=== PATIENT | male | born 1965 | race Asian ===

== ENCOUNTER 2025-05-04 07:02 | Day surgery (SDC) | payer OTHER, SELFPAY ==
[2025-04-12 10:24] VITALS: BMI 30.3
[2025-04-12 11:04] LABS: INR 1.07; PT 14.2 Sec (11.4-14.6)
--- NOTE | 2025-04-12 11:16 | HPS.HSE ---
Family Physician
-
Family Physician: Minal Mosqueda
Chief Complaint
-
Paroxysmal atrial fibrillation.
History of Present Illness
The patient is a 59 year old male presenting today for paroxysmal atrial fibrillation. His primary language is Turkmen; however, his daughter Ashley is here today to provide further translation. The patient reports a history of shortness of
breath, palpitations, lightheadedness, and fatigue all likely associated with this diagnosis. He was initially diagnosed with his arrhythmia in 2022 in the setting of an acute illness and superior mesenteric vein thrombus diagnosis. He is on chronic
Eliquis per hematology due to his previous clot. He previously underwent 2 cardioversions; however, he has failed to maintain normal sinus rhythm. He is rate controlled with Diltiazem. He has been compliant with Eliquis for oral anticoagulation due
to a [id number] of 2. Given his significant symptoms, he would like to proceed with pulmonary vein isolation for more definitive arrhythmia management. He denies any current complaints today such as chest pain, shortness of breath at rest, nausea,
vomiting, diarrhea, dizziness, cough, sore throat, or fever.
Medical History
Past Medical History
Past Medical History: Reports Other
Additional Past Medical History:
1. Paroxysmal atrial fibrillation, status post cardioversion x2; pharmacological therapy with Diltiazem and oral anticoagulation with Eliquis.
2. Dyslipidemia.
3. Superior mesenteric vein thrombus, 2022, on chronic Eliquis per hematology.
4. Obstructive sleep apnea, noncompliant with device.
5. Non-insulin dependent diabetes.
6. GERD.
7. Hiatal hernia.
8. Colon polyps.
9. PAUL with mildly elevated transaminases.
10. Splenomegaly with chronic thrombocytopenia.
11. GI ulcer with bleed, 2018, secondary to excessive NSAID use.
12. Acute blood loss anemia secondary to the above, status post blood transfusion.
13. Gout.
14. Obesity, BMI 30.3.
15. History of tobacco abuse.
Past Surgical History: Reports Other
Additional Past Surgical History:
1. Cardioversion x2.
2. Multiple dental extractions.
3. EGD x2.
Social History
Tobacco: Former Smoker (He is a former 1 pack per day cigarette smoker who quit tobacco altogether in 2018. )
Alcohol: Other (Social use reported. )
Personal:
Living: Other (He lives with his and extended family in a 2 story townhouse. )
Family History
Family History: Not pertinent
Allergies / Home Medications
Allergy/Medication List:
Home medications:
1. Allopurinol 100 mg p.o. twice a day.
2. Eliquis 5 mg p.o. twice a day.
3. Atorvastatin 10 mg p.o. daily.
4. Diltiazem 240 mg p.o. daily.
5. Jardiance 10 mg p.o. daily.
6. Famotidine 10 mg p.o. daily.
7. Ferrous sulfate 325 mg p.o. every other day.
8. Glipizide 10 mg p.o. daily.
9. Tradjenta 5 mg p.o. daily.
10. Losartan 100 mg p.o. daily.
11. Metformin 1000 mg p.o. twice a day.
Allergies: No known allergies.
Review of Systems
-
A 12 point ROS was completed and negative except as noted: Yes
Physical Exam
Vital Signs
Blood pressure 136/83. Heart rate 81. Respirations 18. Pulse ox 98% on room air.
Height 5 feet, 6 inches. Weight 85.1 kg. BMI 30.3.
Physical Exam
General: Well Developed, Well Nourished and No Apparent Distress
HEENT: NormoCephalic, Moist mucous membranes, Atraumatic and PERRLA
Respiratory: Clear
Cardiac: Regular Rhythm
GI: Soft, Non Tender, Non Distended and Other (Obese. )
Musculoskeletal: No Edema and Normal Gait & Station
Skin: Warm and Dry
Neuro: AO x 3 and Nonfocal/grossly intact
Laboratory Results
-
DIAGNOSTIC STUDIES as of 04/12/2025: White blood cell count 5.2. Hemoglobin 14.1. Platelet count 54,000. PT 14.2. INR 1.07. Sodium 137. Potassium 4.2. BUN 10. Creatinine 0.8. Glucose 214. Calcium 9.2. Magnesium 1.9. AST 60. ALT 53. Albumin 4.8. Type
and screen B positive.
EKG 04/12/2025: Normal sinus rhythm. Left axis deviation.
Chest CT 04/12/2025: Conventional pulmonary venous anatomy. Right superior pulmonary vein has a 6.5 mm inferior ostial branch (right middle lobe pulmonary vein). The right inferior pulmonary vein has a 7 mm superior and a 4.4 mm inferior ostial
branch (superior segment right lower lobe pulmonary vein and medial basal subsegmental pulmonary vein, respectively). No left atrial appendage filling defect/thrombus identified. Small sliding hiatal hernia with suggestion of mild esophageal wall
thickening, raising possibility of esophagitis. Findings suspicious for mild splenomegaly.
Impression/Plan
-
IMPRESSION/PLAN:
1. Paroxysmal atrial fibrillation: The patient is in need of pulmonary vein isolation with Dr. Carlos Eduardo Borrero on 05/04/2025. The benefits and risks of the procedure have been explained to the patient. The patient understands these risks and wishes to
proceed. He will not be required to undergo a pre-procedural transesophageal echocardiogram as he has been compliant with his home oral anticoagulation. He is aware to continue his Eliquis uninterrupted prior to his procedure. He will hold his
Jardiance 72 hours prior to his procedure. He will take no medications the morning of his ablation.
2. Splenomegaly with chronic thrombocytopenia: The patient saw his routine care advocate, Dr. Edwin Liu, prior to his ablation. His office note has been scanned into [facility] and [facility]. Dr. Liu notes that his platelet count typically falls
between 60,000 to the low 100,000s. A repeat CBC on 04/19/2025 revealed a platelet count of 60,000. He has recommended the patient have 1 unit of single donor platelets transfused 30-60 minutes prior to his procedure. A unit was also recommended to
be on hold for the OR. This order was placed in [facility] under the advisement of blood bank on 04/27/2025. Celestina from surgical scheduling made aware as the patient will likely need to come in earlier than normal the day of his ablation. Blood bank
is requesting a call be made to them the morning of the procedure so that they will be aware of what time his surgery is scheduled for that day.
[2025-04-12 11:17] LABS: ALT (SGPT) 53 U/L (0-50); AST (SGOT) 60 U/L (17-59); Albumin 4.8 g/dl (3.5-5.0); Alkaline Phosphatase 123 U/L (38-126); Blood Urea Nitrogen 10 mg/dl (9-20); Calcium 9.2 mg/dl (8.4-10.2); Carbon Dioxide 20 mmol/L (22-30); Chloride 107 mmol/L (98-107); Estimated Creatinine Clearance 100 ml/min; Glucose 214 mg/dl (70-99); Magnesium 1.9 mg/dl (1.6-2.3); Potassium 4.2 mmol/L (3.5-5.1); Sodium 137 mmol/L (135-145); Total Protein 7.8 g/dl (6.3-8.2); eGFR > 60.00
[2025-04-12 11:28] LABS: Hematocrit 43.1 % (39.0-52.0); Hemoglobin 14.1 g/dL (13.0-18.0); Mean Corp Hgb Conc. 32.7 g/dL (33.0-37.0); Mean Corpuscular Volume 83.7 fL (80.0-94.0); Nucleated Red Blood Cells % 0 % (-); Red Cell Dist. Width 13.3 % (11.5-14.5)
[2025-04-12 12:00] LABS: Platelet Count 54 10^3/uL (130-400)
[2025-05-04] VITALS (11 sets, daily range): BP systolic 91–141; BP diastolic 65–84
[2025-05-04 07:42] LABS: Glucose - Point of Care 197 mg/dl (70-99)
[2025-05-04 07:42] LABS: Hematocrit 40.4 % (39.0-52.0); Hemoglobin 13.4 g/dL (13.0-18.0); Mean Corp Hgb Conc. 33.2 g/dL (33.0-37.0); Mean Corpuscular Volume 81.1 fL (80.0-94.0); Platelet Count 41 10^3/uL (130-400); Red Cell Dist. Width 14.1 % (11.5-14.5)
[2025-05-04] MEDS: TYLENOL 500 MG PO (07:53)
--- NOTE | 2025-05-04 08:10 | ITS.CL.ABL ---
Blowing Engineer - Ablation
Ablation
Procedure Report:
[place] Bus Driver: Dr Daniel Gilmore
Procedure Date: 05/04/2025
Patient History:
Patient is a pleasant 60-year-old male with a past medical history significant for diabetes, dyslipidemia, PAUL, MED, mesenteric venous thrombus, and symptomatic paroxysmal atrial fibrillation.
See H&P for complete details.
Indication:
Symptomatic paroxysmal atrial fibrillation
Arrhythmia Specific History:
Prior Medical Therapies for Rate and Rhythm Control:
[ ] Beta-eliana
X Calcium channel-eliana
[ ] Amiodarone
[ ] Dronederone
[ ] Sotalol
[ ] Flecainide
[ ] Dofetilide
[ ] Options limited by bradycardia
[ ] Options limited by comorbid renal disease
Prior Procedural Therapies for AF/AFL:
X Cardioversion
[ ] Pulmonary Vein Isolation
[ ] Posterior Wall Isolation
[ ] Additional lines (Specify)
[ ] Surgical Jolley-MAZE or PVI (Specify)
Procedure Performed:
X AF ablation procedure (29174) -- includes LA/CS pacing, trans-septal, 3D mapping, + ICE
[ ] +IV drug (29262)
[ ] +Other Arrhythmia (63003)
X +Other AF Line/ablation (00959) x2 -- floor line, roof line, posterior wall isolation
Risks and expected recovery has been explained in detail. Alternative options have been explored, and in a shared-decision making fashion we have decided that this was the most appropriate procedure.
Method
NPO status confirmed. Grounding pad applied. Defibrillator pads applied. Continuous surface ECG, pulse oximetry, and blood pressure were monitored. Procedure was performed under general anesthesia, with anesthesia services. Platelets (1 unit
platelets) were infused as ordered.
Both groins were clipped, prepped with Chloraprep, and draped in sterile fashion. Time out was called. Local anesthesia administered with bupivacaine. The right femoral vein was accessed for catheter placement, using ultrasound guidance (images
saved to record), micro-puncture needle/wire, and modified seldinger technique. 3 sheaths were placed. The following catheters were used:
[ ] Tacticath SE (D/F Curve) ablation catheter
X Viewflex 9Fr ICE catheter
X Inquiry decapolar 6Fr diagnostic catheter
[ ] CRD Hex 6Fr
X FlexCath Contour 10 Fr with PulseSelect PFA Catheter
X Advisor HD Grid Mapping Catheter, SE
[ ] AcusQualvu AcuNav 8 Fr ICE catheter
[ ]Other: [ ]
Intracardiac ultrasound (ICE) was carefully advanced into the right atrium to guide sheath placement over a J-wire, catheter placement, guide trans-septal puncture, identify potential complications, identify anatomic structures and ensure proper
contact between ablation catheter and tissue.
Heparin was given prior to trans-septal puncture. Heparin was given to achieve and maintain a target ACT of 300-400 seconds throughout the procedure.
Trans-septal access was performed under ICE guidance. The trans-septal puncture was performed with a SafeSept wire through a Brockenbrough needle assembly through the steerable sheath. The wire was visualized as it entered the LSPV and system
advanced under ICE guidance and fluoroscopy into the LA. The Brockenbrough needle assembly, SafeSept wire and sheath dilator were removed under negative pressure. LA pressure was measured and recorded.
ICE and 3D mapping was performed to identify relevant cardiac structures. A careful 3D map was created to assess for regions of low-voltage and abnormal electrogram signals using HD grid mapping catheter and PulseSelect catheter. Additional mapping
was performed as outlined below.
Prior to ablation, glycopyrrolate was provided. PulseSelect catheter was advanced over J-wire to the ostium of each vein. Pulmonary vein isolation was performed with ostial and antral lesions in a circumferential manner. Contact was visualized via
EAM, ICE, fluoroscopy, and EGM signals.
After accomplishing pulmonary venous isolation, mapping identified additional areas likely to be extra PV contributors to atrial fibrillation. These areas demonstrated patchy low voltage as well as complex fractionated electrograms. These areas can
be sites for the formation of rotors which can drive and maintain atrial fibrillation. These areas are known to be significant contributors to initiation and perpetuation of atrial fibrillation.
Additional energy applications/additional ablation sets targeted extra PV contributors to atrial fibrillation.
Targets for additional PFA ablation included: LA posterior wall targeted with pulsed electric field energy isolating the posterior wall of the left atrium. Posterior wall isolation was performed by anchoring the J-wire within the pulmonary vein and
placing the PulseSelect catheter in contact posterior wall as visualized by aforementioned methods.
After ablation of the posterior wall, targets remained including:
- Inferior LA floor
- Anterior LA roof
- The ridge of tissue between the left atrial appendage and the left sided pulmonary veins (Ligament of Balaji)
These areas were ablated using pulsed electric field energy eliminating the extra PV contributors to atrial fibrillation.
Following completion of ablation lesions, a post-ablation voltage/activation map was performed in sinus rhythm. Acute reconnection was noted at the left superior pulmonary vein. Repeat pulsed field ablation was performed at the right superior
pulmonary vein. Electroanatomic mapping then performed with HD grid which demonstrated no further signal and entrance and exit block were confirmed for each vein and the posterior wall.
Catheter and sheath were removed from the left atrium and post-ablation intracardiac echo evaluation was consistent with pre-ablation with no changes and no pericardial effusion and there is no left atrial thrombus or left ventricle thrombus seen.
Electrophysiology study was performed. Hemostasis was obtained with figure of 8 stitch for each groin and with manual pressure. Protamine was used for reversal.
Estimated Blood Loss
10 mL
Complications
None
Fluoroscopy: 4.6 minutes; 16.8 mGy; DAP 2.08
LA Pressure: Pre7 mmHg, post 13 mmHg
Baseline Intervals:
Rhythm: Sinus rhythm
OR: 154 ms
QRS: 82 ms
QT: 362 ms
QTc: 421 ms
Post-Procedure Intervals:
OR: 139 ms
QRS: 79 ms
QT: 370 ms
QTc: 447 ms
AVWB: 350 ms
AVNERP: 600/220 ms
AERP: 600/220 ms
Recommendations
- Bedrest with straight-leg precautions as ordered
- Anticipate same day discharge if patient meeting clinical metrics
- Resume home medications as indicated
- Ok to resume anticoagulation tonight if patient and groin sites stable
- Plan for follow-up in office as scheduled
- CBC 1-2 weeks, follow-up with Operational Risk Analyst
Carlos Eduardo Borrero, , FACC, FHRS
Clinical Cardiac Agriculture Laboratory Technician
cc: Dr Daniel Gilmore; Dr Cyndie Lang; Dr Edwin Liu
[2025-05-04 09:15] LABS: ACT-LR - POC 343 Seconds (116-155)
[2025-05-04 09:47] LABS: ACT-LR - POC 355 Seconds (116-155)
[2025-05-04 10:14] LABS: ACT-LR - POC 285 Seconds (116-155)
[2025-05-04 10:28] LABS: ACT-LR - POC 342 Seconds (116-155)
[2025-05-04 10:50] LABS: ACT-LR - POC 155 Seconds (116-155)
[2025-05-04 11:44] LABS: Glucose - Point of Care 209 mg/dl (70-99)
[2025-05-04] MEDS: GLUCOPHAGE 1000 MG PO (12:01)
[2025-05-04] MEDS: FARXIGA 10 MG PO (12:02)
[2025-05-04 12:18] LABS: ACT-LR - POC > 397 Seconds (116-155)
--- NOTE | 2025-05-04 15:46 | W.PN.UPDATE ---
Update Note
Progress Note Update
60 yo male s/p PVI (Same day). He denies cp, sob, tricia diet, voiding, EKG SR, R fem site c/d/i no HT, soft. He will resume Eliquis tonight and continue diltiazem. He will repeat CBC in 1 week with h/o thrombocytopenia and FFP infusion pre procedure.
Activity restrictions reviewed with him and his daughter. He will f/u Dr. Gilmore in 3 mo. He is for d/c home after 4pm.
== END 2025-05-04 15:56 | disposition home or self-care (01) ==
LOC: CATH 07:02
PROVIDERS: Nurse Practitioner; ATTENDING PHYSICIAN Internal Medicine Cardiovascular Disease; FAMILY PHYSICIAN Nurse Practitioner Family; OTHER PHYSICIAN Internal Medicine Interventional Cardiology
DX: I48.0 Paroxysmal atrial fibrillation (principal); E78.5 Hyperlipidemia, unspecified; G47.33 Obstructive sleep apnea (adult) (pediatric); Z79.01 Long term (current) use of anticoagulants; E11.29 Type 2 diabetes mellitus with other diabetic kidney complication; Z79.84 Long term (current) use of oral hypoglycemic drugs; K44.9 Diaphragmatic hernia without obstruction or gangrene; Z86.0100 Personal history of colon polyps, unspecified; D69.6 Thrombocytopenia, unspecified; R16.1 Splenomegaly, not elsewhere classified; M10.9 Gout, unspecified; E66.9 Obesity, unspecified; Z68.30 Body mass index [BMI] 30.0-30.9, adult; Z72.0 Tobacco use; Z86.718 Personal history of other venous thrombosis and embolism; Z79.899 Other long term (current) drug therapy; Z87.11 Personal history of peptic ulcer disease; K21.9 Gastro-esophageal reflux disease without esophagitis; K75.81 Nonalcoholic steatohepatitis (NASH); R74.01 Elevation of levels of liver transaminase levels
CPT/HCPCS: C1733; C1766; C1732; C1894; C1769; 36415; 75572; 80053; 82962; 83735; 85025; 85027; 85347; 85610; 86850; 86900; 86901; 93005; 93656; 93657; P9073; Q9967